=== PATIENT | female | born 1980 | race Caucasian/White ===

== ENCOUNTER 2018-09-04 02:19 | Inpatient (IN) ==
[2018-09-04 03:00] LABS: Microscopic, Urine URINE MICROSCOPIC (MICROSCOPIC)
[2018-09-04 03:08] LABS: Basophils % 0.3 % (0.1-2.0); Eosinophils # 0.1 K/mm3 (0.0-0.4); Eosinophils % 0.6 % (0.1-12.0); Hematocrit 32.4 % (37.0-47.0); Hemoglobin 9.8 g/dL (12.2-16.2); Lymphocytes # 2.6 K/mm3 (0.7-4.5); Lymphocytes % 17.7 % (10-50); Mean Corpuscular HGB Conc 30.2 g/dL (31.8-35.4); Mean Corpuscular Hemoglobin 22.1 pg (27.0-31.2); Mean Corpuscular Volume 73.1 fl (81-99); Mean Platelet Volume 7.2 fl (7.4-10.4); Monocytes # 0.6 K/mm3 (0.1-1.0); Monocytes % 3.7 % (1.7-9.3); Neutrophils # 11.6 K/mm3 (1.8-7.8); Neutrophils % 77.8 % (37.0-80.0); Platelet Count 519 K/mm3 (142-424); Red Blood Count 4.44 M/mm3 (4.20-5.40); Red Cell Distribution Width 15.5 % (11.5-17.5); White Blood Count 14.9 K/mm3 (4.8-10.8)
[2018-09-04 03:09] LABS: Amphetamine/Metha Screen,Urine Negative ng/mL (<1000); Barbiturates Screen,Urine Negative ng/mL (<200); Benzodiazepines Screen,Urine Negative ng/mL (<200); Cannabinoid Screen,Urine Negative ng/mL (<50); Cocaine Screen,Urine Positive ng/mL (<300); Methadone Screen,Urine Negative ng/mL (<300); Opiate Screen,Urine Negative ng/mL (<300); Phencyclidine Screen,Urine Negative ng/mL (<25)
[2018-09-04 03:10] LABS: Appearance,Urine CLEAR (Clear); Bilirubin,Urine Negative (Negative); Blood, Urine 3+ (Negative); Color,Urine YELLOW (Yellow); Glucose,Urine (UA) Negative (Negative); Ketones,Urine Negative (Negative); Leukocyte Esterase,Urine TRACE (Negative); PH,Urine 6.5 (5.0-8.5); Protein,Urine Negative (Negative); Specific Gravity, Urine 1.015 (1.005-1.030); Urobilinogen,Urine 0.2 EU/dl (0.2)
[2018-09-04 03:11] VITALS: BP 162/125
[2018-09-04 03:16] LABS: Anion Gap 16.2 mEq/L (5-15); Calcium 8.3 mg/dL (8.5-10.1); Potassium 4.2 mmoL/L (3.5-5.1)
[2018-09-04 03:16] LABS: RBC,Urine 20-50 #/hpf (0-3)
--- NOTE | 2018-09-04 07:57 | History & Physical Report ---
OB - H&P: HPI Antepartum - History of Present Illness Chief complaint: Vaginal bleeding at 8 months History of present illness: She is a 38-year-old 9 para 8 who thinks she is about 8 months to age. She has had no care. Says that she has been using cocaine for pregn adriana. She said the last she used crack cocaine about 4-5 days. Early this morning she began had some bleeding and came into labor and delivery. An ultrasound showed that she had what appeared to be a 36-week fetus that had no fluid at the cervix was found to be 2 cm 80 and 50%. The presenting part was high and on around the presenting part with her. As a result of this we will go ahead and admit her for delivery - History of Present Criteria for establishing EDC:: based on LMP only care: none Ultrasounds: none Medical complications: other (Maternal drug abuse, cocaine, maternal smoker, advanced maternal) [facility] History I have reviewed the patient's past medical history: Yes Other Surgeries: No: Para: 8 Review of Systems - Review of Systems Review of systems:: pertinent systems reviewed and negative unless documented below Meds Allergies Allergy/AdvReac Type Severity Reaction Status Date / Time No Known Allergies Allergy Verified 09/04/18 02:52 OB - H&P: Exam - Physical Exam Vital signs: Pulse Resp BP Pulse Ox 116 H 17 162/125 H 98 09/04/18 02:33 09/04/18 02:33 09/04/18 02:33 09/04/18 02:33 - Constitutional no acute distress - Routine HEENT Exam Head: Present: normocephalic Eye: Present: EOMI, PERRL ENT: Present: mucous membranes moist - Routine Neck Exam Present: supple, full ROM - Routine Respiratory Exam Absent: accessory muscle use (good air entry bilaterally), respiratory distress, wheezes, crackles - Routine Cardiovascular Exam Present: RRR. Absent: murmur - Routine Abdominal Exam Present: soft, normoactive bowel sounds. Absent: tenderness, distended, guarding - Routine Rectal Exam Patient deferred: visual exam, digital exam - Routine Exam Patient deferred: external exam, groin exam, perineal exam - Routine Extremities Exam Present: full ROM. Absent: cyanosis, edema - Routine Skin Exam Present: intact. Absent: cyanosis - Routine Neurological Exam Present: alert, oriented X3 - Routine Psychiatric Exam Present: normal affect OB - Results - Labs Labs: Short CBC 09/04/18 Range/Units 02:50 WBC 14.9 H (4.8-10.8) K/mm3 Hgb 9.8 L (12.2-16.2) g/dL Hct 32.4 L (37.0-47.0) % Plt Count 519 H (142-424) K/mm3 BMP 09/04/18 02:50 Sodium 134 L Potassium 4.2 Chloride 100 Carbon Dioxide 22 BUN 8 Creatinine 0.51 L Glucose 78 Calcium 8.3 L Urine 09/04/18 Range/Units 02:30 Urine Color Yellow (Yellow) Urine Appearance Clear (Clear) Urine pH 6.5 (5.0-8.5) Ur Specific [place] 1.015 (1.005-1.030) Urine Protein Negative (Negative) Urine Glucose (UA) Negative (Negative) OB - A/P Antepartum (1) No care in current Current visit: Yes Status: Acute (2) Advanced maternal age (AMA), 40 years or greater Current visit: Yes Status: Acute (3) Maternal drug abuse, antepartum Current visit: Yes Status: Acute (4) Stillbirth with antepartum Current visit: Yes Status: Acute - Additional Plan Planning to breastfeed?: No Plan: induction Additional Information:: Ultrasound confirmed no heart rate activity at this is in the cephalic patient. As result of this we will go ahead and deliver her today. She is 2 cm, percent effaced and station -2. She is having contractions.
--- NOTE | 2018-09-04 08:19 | Progress Note ---
Labor Note - Subjective: Date: 09/04/18 (n) Time: 08:18 irregular contractions - Objective: Contractions:: every 4-5 minutes Cervical Dilation:: 2-3 Effacement:: 50% Station: -2 Membranes: ruptured, artificially ruptured - Fetus: monitoring type:: Internal Comment:: I inserted an IUPC - Assessment: Labor progressing?: Yes Cephalopelvic disproportion?: No Patient Problems: All Active Problems No care in current (Acute) Advanced maternal age (AMA), 40 years or greater (Acute) Maternal drug abuse, antepartum (Acute) Stillbirth with antepartum (Acute) - Plan: Anesthesia for epidural?: Yes Continue to labor down?: Yes Plan for ?: No Continue to monitor?: Yes Start pushing?: No
--- NOTE | 2018-09-04 12:14 | Progress Note ---
[facility] Anesthesia Checklist - Patient Identification Patient Identification: Arm Band - Structural Data Admitted From: Home Planned Operative Procedure/s: labor epidural Consent for Planned Operative Procedure(s) Verified: Yes Verified Documents: History and Physical - NPO Status Verified Time NPO: 00:00 - Additional verifications Anesthesia Reactions: No - Airway Assessment C-Spine Mobility Assessed: Yes TMJ Mobility Assessed: Yes - Neurological Assessment Level of Consciousness: Awake, Alert - Anesthesia Plan Anesthesia Risk discussed: Yes Anesthesia Plan: Verified ASA Class: II Anesthesia Type: Epidural [facility] History I have reviewed the patient's past medical history: Yes Other Medical History: Reports: Other (drug abuse) Other Surgeries: No: Para: 8
--- NOTE | 2018-09-04 13:39 | Progress Note ---
Labor Note - Subjective: Date: 09/04/18 Time: 13:39 regular contraction - Objective: Contractions:: every 4-5 minutes Cervical Dilation:: 3-4 Effacement:: 50% Station: -2 Membranes: artificially ruptured - Fetus: Monitoring?: Yes monitoring type:: Internal - Assessment: Labor progressing?: Yes Cephalopelvic disproportion?: No Patient Problems: All Active Problems No care in current (Acute) Advanced maternal age (AMA), 40 years or greater (Acute) Maternal drug abuse, antepartum (Acute) Stillbirth with antepartum (Acute) - Plan: Anesthesia for epidural?: Yes Continue to labor down?: Yes Plan for ?: No
--- NOTE | 2018-09-04 15:12 | Progress Note ---
Labor Note - Subjective: Date: 09/04/18 Time: 15:12 regular contraction - Objective: Contractions:: every 2-3 minutes Cervical Dilation:: 4 Effacement:: 75% Station: -1 Membranes: artificially ruptured - Fetus: Monitoring?: Yes monitoring type:: Internal - Assessment: Labor progressing?: Yes Cephalopelvic disproportion?: No Patient Problems: All Active Problems No care in current (Acute) Advanced maternal age (AMA), 40 years or greater (Acute) Maternal drug abuse, antepartum (Acute) Stillbirth with antepartum (Acute) - Plan: Anesthesia for epidural?: Yes Continue to labor down?: Yes Plan for ?: No
--- NOTE | 2018-09-04 17:01 | Progress Note ---
Labor Note - Subjective: Date: 09/04/18 (nn) Time: 17:00 regular contraction - Objective: Contractions:: every 2-3 minutes Cervical Dilation:: 4 Effacement:: 75% Station: -1 Membranes: artificially ruptured - Fetus: Monitoring?: Yes monitoring type:: Internal - Assessment: Labor progressing?: Yes Cephalopelvic disproportion?: No Patient Problems: All Active Problems No care in current (Acute) Advanced maternal age (AMA), 40 years or greater (Acute) Maternal drug abuse, antepartum (Acute) Stillbirth with antepartum (Acute) - Plan: Anesthesia for epidural?: Yes Continue to labor down?: Yes Plan for ?: No Continue to monitor?: Yes Start pushing?: No Comment:: She continues to have regular contractions but they are quite mild and we have an IUPC inserted. We will see how she does couple of hours since she is just 4 cm and 75% effaced. The cervix has thinned out somewhat. We may consider turning off her oxytocin overnight, letting her eat dinner and then restarting her oxytocin tomorrow morning.
--- NOTE | 2018-09-04 19:25 | Progress Note ---
Labor Note - Subjective: Date: 09/04/18 Time: 19:25 regular contraction - Objective: Contractions:: every 2-3 minutes Cervical Dilation:: 6 Effacement:: 100% Station: 0 Membranes: artificially ruptured - Fetus: Monitoring?: Yes monitoring type:: Internal - Assessment: Labor progressing?: Yes Cephalopelvic disproportion?: No Patient Problems: All Active Problems No care in current (Acute) Advanced maternal age (AMA), 40 years or greater (Acute) Maternal drug abuse, antepartum (Acute) Stillbirth with antepartum (Acute) - Plan: Anesthesia for epidural?: Yes Continue to labor down?: Yes Plan for ?: No Continue to monitor?: Yes Start pushing?: No
--- NOTE | 2018-09-04 21:20 | Procedure Note ---
- Delivery Note Delivery Date:: 09/04/18 Delivery Time:: 21:09 Anesthesia Type: Epidural Was labor medically induced?: Yes Induction method: per pitocin protocol Gestational age (weeks): 36 Infant delivered prior to 39 weeks?: Yes Justification for early elective delivery:: Demise Gender: Female at 1 minute: 0 at 5 minutes: 0 AF:: Clear fluid Delivery Procedure:: Is a 38-year-old 9 para 8 who is approximately 36 weeks gestational age. She says that she is unsure of her last menstrual period. She has had no care. She has been using crack cocaine until about 5 days ago. She is a smoker. She says that she began having vaginal bleeding and came into labor and delivery. An ultrasound at that time showed demise with no heart rate both on M-mode and Doppler. As a result of that we elected to induce her labor. She was started on IV oxytocin had her membranes ruptured. Under labor epidural she progressed to full dilation and delivered spontaneously a stillborn female child at 9:09 PM on the evening of September 04, 2018. The baby had Apgars of 0 at 1 minute and 0 at 5 minutes. There did not appear to be any abnormalities with the baby and it appeared to be a full-term baby. The placenta appeared normal. There is no evidence of abruption. On deliver the head the rest of the infant's body delivered quickly. The cord was doubly clamped and cut. The was then handed off to the nurses. There was no heart activity and the baby was completely limp. Using gentle traction on the cord and counter traction on the fundus I was able to easily deliver the placenta intact. It had a normal three-vessel cord. The cord was completely clotted off. There was no evidence of any cord knots or any other abnormalities. There was a slight odor from the baby when it was born. The estimate of blood loss was approximately 300 cc. Were no perineal or vaginal lacerations.
[2018-09-05 06:52] LABS: Hemoglobin 7.7 g/dL (12.2-16.2)
--- NOTE | 2018-09-05 08:15 | Discharge Summary ---
General - General Admission date:: 09/04/18 Discharge date: 09/05/18 HPI HPI: She is a 38-year-old 9 para 9 who was approximately 8 months . She has had no care. She has been using crack cocaine throughout the . She said she last used it about 4 days prior to her admission. She had some vaginal bleeding and came into labor and delivery. An ultrasound confirmed that she had a stillborn child. There is no heart rate activity. There was no flow on Doppler. As a result of this we elected to induce her labor. Hospital Course Hospital Course: She was started on IV oxytocin and had her membranes ruptured. She progressed under labor epidural to full dilation and delivered spontaneously a stillborn female child. Baby weighed 4 pounds 13 ounces. Had Apgars of 0 and 0. There were no perineal or vaginal lacerations. She has done well and has remained afebrile throughout her hospitalization. She did have one elevation in temperature just prior to delivery and we elected to give her IV Ancef overnight since she also had some foul odor when the he was born. She has Rh- blood. She will receive RhoGam prior to. Her hemoglobin is low at 7.7 although she is completely asymptomatic. We will give her a prescription for iron tablets. She will follow-up with me in 2-week time. She is given Depo-Provera prior to discharge as well. Rhogam Administration: Given Objective Vital signs: Pulse Resp BP Pulse Ox 116 H 17 162/125 H 98 09/04/18 02:33 09/04/18 02:33 09/04/18 02:33 09/04/18 02:33 no acute distress Results Labs on day of discharge: Labs from last 24 hours 09/05/18 09/05/18 06:23 06:23 Hgb 7.7 L* Hct 24.0 L Blood Type O Negative Antibody Screen Negative Screen Pending Baby's Rh Status Unknown DS: Diagnosis - Discharge Diagnosis (1) No care in current Status: Acute (2) Advanced maternal age (AMA), 40 years or greater Status: Acute (3) Maternal drug abuse, antepartum Status: Acute (4) Stillbirth with antepartum Status: Acute Discharge Plan - Patient Discharge Instructions ACTIVITY: No heavy lifting DIET: continue same diet - Follow up Plan Disposition: Home, Self-Jail Medications: Home Medications Medication Instructions Recorded Confirmed Type No Known Home Medications 09/04/18 09/04/18 History Prescriptions/Medication Reconciliation: New Ferrous Sulfate [Ferrous Sulfate 325mg Tablet] 325 mg PO DAILY #30 tablet No Action No Known Home Medications
[2018-09-05 15:36] LABS: Hepatitis B Surface Antigen Negative (Negative); Hepatitis C Antibody 0.2 s/co ratio (0.0-0.9)
[2018-09-05 15:36] LABS: HIV Screen 4th Generation wRfx Non Reactive (Non Reactive)
== END 2018-09-05 10:15 | disposition home or self-care (01) ==
LOC: OBOUT 02:19 → OB 02:26
PROVIDERS: ADMIT Nurse Practitioner Obstetrics & Gynecology; ATTEND Nurse Practitioner Obstetrics & Gynecology